=== PATIENT | female | born 1970 | race Caucasian/White ===

== ENCOUNTER 2018-04-08 13:18 | Inpatient (IN) | payer OTHER ==
[~2018-04-08] VITALS: Ht 172.7 cm; Wt 78.9 kg
[2018-04-08 15:09] LABS: BASOPHIL % 0.3 % (0-2); PLATELET COUNT 242 x10^3mcL (130-400)
[2018-04-08 15:13] LABS: CARBON DIOXIDE 27.2 mmol/L (21-32); CHLORIDE SERUM 101 mmol/L (98-107); CREATININE SERUM 0.7 mg/dL (0.6-1.0); GFR1 > 60 mL/min; GLUCOSE SERUM 77 mg/dL (74-106); POTASSIUM SERUM 4.3 mmol/L (3.5-5.1); SODIUM SERUM 136 mmol/L (136-145)
[2018-04-08 15:18] LABS: ALBUMIN 3.7 g/dL (3.4-5.0); ALKALINE PHOSPHATASE 61 U/L (46-116); ALT/SGPT 45 U/L (14-59); AMYLASE 51 U/L (25-115); AST/SGOT 26 U/L (15-37); BILIRUBIN TOTAL 0.26 mg/dL (0.20-1.00); LIPASE 277 IU/L (73-393); TOTAL PROTEIN, SERUM 7.8 g/dL (6.4-8.2)
[2018-04-08 15:20] LABS: RED CELL DISTRIBUTION WIDTH 15.6 % (11.5-14.5)
[2018-04-08 16:10] LABS: UA SPECIFIC GRAVITY >=1.030 (1.005-1.035); microscopic required? YES; urine erythrocyte NEGATIVE (NEGATIVE)
[2018-04-08] MEDS ORDERED: LEXAPRO20 MG PO (17:19)
[2018-04-08] MEDS ORDERED: OTEZLA1 EACH PO (17:19)
[2018-04-08 18:12] VITALS: BP 127/82
[2018-04-08] MEDS ORDERED: LACTULOSE10 GM/152 PO (18:18)
[2018-04-08 18:20] VITALS: Ht 172.7 cm; Wt 78.9 kg
[2018-04-08 20:15] VITALS: BP 112/56
[2018-04-09 05:23] VITALS: BP 115/61
[2018-04-09 06:31] LABS: CALCIUM 8.5 mg/dL (8.5-10.1); CARBON DIOXIDE 26.3 mmol/L (21-32); CHLORIDE SERUM 104 mmol/L (98-107); CREATININE SERUM 0.7 mg/dL (0.6-1.0); GFR1 > 60 mL/min; GLUCOSE SERUM 101 mg/dL (74-106); POTASSIUM SERUM 4.5 mmol/L (3.5-5.1); SODIUM SERUM 139 mmol/L (136-145)
[2018-04-09 06:47] LABS: BASOPHIL % 0.3 % (0-2); PLATELET COUNT 233 x10^3mcL (130-400)
[2018-04-09 09:20] VITALS: BP 113/59
[2018-04-09 17:03] VITALS: BP 113/60
[2018-04-09 17:11] VITALS: BP 132/79
== END 2018-04-09 17:24 | disposition home or self-care (01) | DRG 761 ==
LOC: ED 13:18 → MU 17:08 → DU 17:08 → MU 18:49
PROVIDERS: Emergency Medicine; Internal Medicine
DX: N83.201 Unspecified ovarian cyst, right side (principal); N20.0 Calculus of kidney; L40.9 Psoriasis, unspecified; Z68.26 Body mass index [BMI] 26.0-26.9, adult; F17.210 Nicotine dependence, cigarettes, uncomplicated
CPT/HCPCS: J1956; J2270; J2405; J3010; J7030; J7050; Q9967